=== PATIENT | male | born 2005 | race Hispanic/Latino ===

== ENCOUNTER 2024-01-25 19:46 | Emergency (ER) | payer SELFPAY ==
[~2024-01-25] VITALS: Ht 167.6 cm; Wt 70.3 kg
[2024-01-25 19:54] VITALS: BP 127/71; PULSE 72; RESP 16; TEMP 97.8; O2SAT 100
== END 2024-01-25 20:59 | disposition home or self-care (01) ==
LOC: EDH 19:46
DX: S00.83XA Contusion of other part of head, initial encounter (principal); W18.39XA Other fall on same level, initial encounter; Y93.68 Activity, volleyball (beach) (court); Y92.89 Other specified places as the place of occurrence of the external cause; Y99.8 Other external cause status
CPT/HCPCS: 70450; 70486